=== PATIENT | female | born 1985 | race Caucasian/White ===

== ENCOUNTER 2017-01-21 20:07 | Emergency (ER) | payer BC ==
[~2017-01-21] VITALS: Ht 165.1 cm; Wt 138.3 kg
[~2017-01-21 20:07] MED LIST: CITA20TA9 PO; DESO1TAB33 PO; NAPR-683 PO
[2017-01-21 20:53] LABS: BILIRUBIN,URINE NEGATIVE (NEG); GLUCOSE,URINE NEGATIVE (NEG); NITRITE,URINE NEGATIVE (NEG); PH,URINE 6.5; PROTEIN,URINE 100 mg/dL (NEG-TRACE); UROBILINOGEN,URINE 0.2 mg/dL (0.2 mg/dL)
[2017-01-21 20:55] LABS: BACTERIA,URINE 0 /HPF (0-FEW); RBC,URINE TNTC /HPF (0-2); SQUAMOUS EPITHELIAL CELL,UR OCC /LPF
[2017-01-21] MEDS ORDERED: IV NORMAL SALINE 1000ML BAG 1,000 ML IV ONE (21:45)
[2017-01-21 21:51] LABS: BASO % 0 % (0-3); EOS % 1 % (0-3); HEMATOCRIT 38.8 % (36.0-47.0); HEMOGLOBIN 12.8 g/dL (12.0-15.5); LYMPH # 3.2 x10^3/uL (1.0-4.8); LYMPH % 34 % (24-48); MEAN CORPUSCULAR HEMOGLOBIN 26 pg (25-35); MEAN CORPUSCULAR HGB CONC 33 g/dL (31-37); MEAN CORPUSCULAR VOLUME 80 fL (79-100); MONO % 8 % (0-9); NEUT % 57 % (31-73); PLATELET COUNT 261 x10^3/uL (140-400); RED BLOOD COUNT 4.86 x10^6/uL (3.50-5.40); RED CELL DISTRIBUTION WIDTH 14.9 % (11.5-14.5); WHITE BLOOD COUNT 9.5 x10^3/uL (4.0-11.0)
[2017-01-21 22:10] LABS: CALCIUM 8.7 mg/dL (8.5-10.1); CREATININE 0.9 mg/dL (0.6-1.0); GFR 72.6; POTASSIUM 3.9 mmol/L (3.5-5.1)
[2017-01-21 22:15] LABS: ALBUMIN 3.3 g/dL (3.4-5.0); ALBUMIN/GLOBULIN RATIO 0.7 (1.0-1.7); TOTAL BILIRUBIN 0.1 mg/dL (0.2-1.0); TOTAL PROTEIN 7.9 g/dL (6.4-8.2)
--- NOTE | 2017-01-21 23:32 | RAD ---
Transabdominal and transvaginal sonography of the pelvis HISTORY: Heavy vaginal bleeding since November 28, 2016. COMPARISON: October 26, 2015. Transabdominal sonography: The uterus is anteverted in position. The longitudinal and AP and transverse dimensions are 9.9 cm and 4.6 cm and 5.3 cm respectively. The endometrial canal measures 5 mm in thickness but is poorly visualized. Therefore, transvaginal sonography will be performed. No free fluid is evident. The left ovary is not visualized by transabdominal exam. The right ovary appears normal and measures 2.4 cm and 1.6 cm and 1.7 cm in size. No adnexal mass is seen. Transvaginal sonography: The endometrial canal measures 7 mm in thickness and appears normal. This is less thick than the previous study when it measured 12 mm. No uterine mass or fibroid is seen. No free fluid is seen within the cul-de-sac. The left ovary is visualized and is normal measuring 2.4 cm and 3.0 cm and 1.8 cm in size. Color Doppler flow is seen within the left ovary. The right ovary is normal and measures 1.9 cm and 2.7 cm and 1.9 cm in size. Color Doppler flow is seen within the right ovary. No adnexal mass is seen. IMPRESSION: Normal study. Electronically signed by: Israel Spencer MD (01/21/2017 11:28 PM) [facility]
[2017-01-22] MEDS ORDERED: NORG1TAB13 PO (00:19)
[2017-01-22 00:45] VITALS: BP 112/58
--- NOTE | 2017-01-22 01:49 | ED.ADGEN ---
Past Medical History Past Medical History: Depression, Pneumonia Past Surgical History: Alcohol Use: None Drug Use: None Adult General Chief Complaint Chief Complaint: VAGINAL BLEEDING HPI HPI Patient is a 31 year old woman, history of uterine polyps, with dysfunctional uterine bleeding, for which she has been on control pills for a year, who presents emergency Department with complaint of dysfunctional uterine bleeding. Patient states that she had been doing well on her control regimen, and then about 70 days ago began experiencing light of persistent bleeding. She states that she does not avoid follow-up with her FLOWER CUTTER, Dr. Mays on Wednesday. She states that she previously was using a few pads a day, but today began experiencing excessive bleeding, passage of dark red blood and clots, and is used over a dozen pads today. She states she does feel slightly lightheaded, denies any syncope, any chest pain or shortness of breath, any injuries or insertions of the vagina, any nausea or vomiting,any weakness, numbness or tingling. She states that she is sexually active but denies any concerns for STI exposures. She states she experience mild discomfort with passage of clots, but no significant abdominal pain or cramping, no back pain, urinary complaints. Patient states she had a similar sort occur when she first developed issues with vaginal bleeding a year ago, at that time she was admitted to the hospital and placed on IV hormone therapy before she was initiated on oral therapy. Review of Systems Review of Systems Constitutional: Denies fever or chills. [] Eyes: Denies change in visual acuity. [] HENT: Denies nasal congestion or sore throat. [] Respiratory: Denies cough or shortness of breath. [] Cardiovascular: Denies chest pain or edema. [] GI: Denies abdominal pain, nausea, vomiting, bloody stools or diarrhea. [] : Denies dysuria. [] Persistent vaginal bleeding, heavy times one day. Musculoskeletal: Denies back pain or joint pain. [] Integument: Denies rash. [] Neurologic: Denies headache, focal weakness or sensory changes. [] Endocrine: Denies polyuria or polydipsia. [] Lymphatic: Denies swollen glands. [] Psychiatric: Denies depression or anxiety. [] Current Medications Current Medications Current Medications Medications (Trade) Dose Ordered Sig/Apmaro Start Time Stop Time Status Last Admin Dose Admin Sodium Chloride 1,000 ml @ 1,000 mls/hr 1X ONCE 01/21/17 21:45 01/21/17 22:44 DC 01/21/17 21:47 1,000 MLS/HR Allergies Allergies Allergies Coded Allergies Type Severity Reaction Last Updated Verified coconut oil Allergy Severe Anaphylaxis 08/03/14 No medroxyprogesterone Allergy Severe ANAPHYLAXIS, SWELLING 10/25/15 Yes Physical Exam Physical Exam Constitutional: Well developed, well nourished, no acute distress, non-toxic appearance. [] HENT: Normocephalic, atraumatic, bilateral external ears normal, oropharynx moist, no oral exudates, nose normal. [] Eyes: PERRLA, EOMI, conjunctiva normal, no discharge. [] Neck: Normal range of motion, no tenderness, supple, no stridor. [] Cardiovascular:Heart rate regular rhythm, no murmur , S1, S2, rubs or gallops.[] Lungs & Thorax: Bilateral breath sounds clear to auscultation, no wheezing, rhonchi, rales. No chest or crepitus or tenderness. [] Abdomen: Bowel sounds normal, soft, obese, no tenderness, no masses, no pulsatile masses. [] Skin: Warm, dry, no erythema, no rash. [] Back: No tenderness, no CVA tenderness. [] Extremities: No tenderness, no cyanosis, no clubbing, ROM intact, no edema. [] Neurologic: Alert and oriented X 3, normal motor function, normal sensory function, no focal deficits noted. [] Psychologic: Affect normal, judgement normal, mood normal. [] Pelvic examination: External examination is normal, no lesions or rales identified, patient noted to have moderate amount of dark red blood, and clots with initial examination of the vulva, bimanual examination reveals mild tenderness at the cervix, no adnexal masses or normalities palpated. Speculum examination performed, reveals a normal-appearing cervix, which is oozing dark red blood, no clots or tissue noted in the os. Os is fingertip external, and external. No friability or other abnormalities identified. Speculum examination performed without issue, specimen taken without issue. Current Patient Data Vital Signs Vital Signs Date Time Temp Pulse Resp B/P (MAP) Pulse Ox O2 Delivery O2 Flow Rate FiO2 01/22/17 00:45 21 112/58 (76) 95 Room Air 01/22/17 00:30 90 01/21/17 20:39 99.2 99.2 Lab Values Laboratory Tests Test 01/21/17 20:27 01/21/17 20:39 01/21/17 21:05 Urine Color Yellow Urine Clarity Clear Urine pH 6.5 Urine Specific [place] 1.025 Urine Protein 100 mg/dL (NEG-TRACE) Urine Glucose (UA) Negative mg/dL (NEG) Urine Ketones (Stick) Negative mg/dL (NEG) Urine Blood Large (NEG) Urine Nitrite Negative (NEG) Urine Bilirubin Negative (NEG) Urine Urobilinogen Dipstick 0.2 mg/dL (0.2 mg/dL) Urine Leukocyte Esterase Trace (NEG) Urine RBC Tntc /HPF (0-2) Urine WBC 1-4 /HPF (0-4) Urine Squamous Epithelial Cells Occ /LPF Urine Bacteria 0 /HPF (0-FEW) POC Urine HCG, Qualitative Hcg negative (Negative) White Blood Count 9.5 x10^3/uL (4.0-11.0) Red Blood Count 4.86 x10^6/uL (3.50-5.40) Hemoglobin 12.8 g/dL (12.0-15.5) Hematocrit 38.8 % (36.0-47.0) Mean Corpuscular Volume 80 fL (79-100) Mean Corpuscular Hemoglobin 26 pg (25-35) Mean Corpuscular Hemoglobin Concent 33 g/dL (31-37) Red Cell Distribution Width 14.9 % (11.5-14.5) H Platelet Count 261 x10^3/uL (140-400) Neutrophils (%) (Auto) 57 % (31-73) Lymphocytes (%) (Auto) 34 % (24-48) Monocytes (%) (Auto) 8 % (0-9) Eosinophils (%) (Auto) 1 % (0-3) Basophils (%) (Auto) 0 % (0-3) Neutrophils # (Auto) 5.4 x10^3uL (1.8-7.7) Lymphocytes # (Auto) 3.2 x10^3/uL (1.0-4.8) Monocytes # (Auto) 0.7 x10^3/uL (0.0-1.1) Eosinophils # (Auto) 0.1 x10^3/uL (0.0-0.7) Basophils # (Auto) 0.0 x10^3/uL (0.0-0.2) Sodium Level 140 mmol/L (136-145) Potassium Level 3.9 mmol/L (3.5-5.1) Chloride Level 105 mmol/L (98-107) Carbon Dioxide Level 26 mmol/L (21-32) Anion Gap 9 (6-14) Blood Urea Nitrogen 12 mg/dL (7-20) Creatinine 0.9 mg/dL (0.6-1.0) Estimated GFR (Cockcroft-Gault) 72.6 BUN/Creatinine Ratio 13 (6-20) Glucose Level 85 mg/dL (70-99) Calcium Level 8.7 mg/dL (8.5-10.1) Total Bilirubin 0.1 mg/dL (0.2-1.0) L Aspartate Amino Transferase (AST) 18 U/L (15-37) Alanine Aminotransferase (ALT) 19 U/L (14-59) Alkaline Phosphatase 62 U/L (46-116) Total Protein 7.9 g/dL (6.4-8.2) Albumin 3.3 g/dL (3.4-5.0) L Albumin/Globulin Ratio 0.7 (1.0-1.7) L Laboratory Tests 01/21/17 21:05 Laboratory Tests 01/21/17 21:05 Microbiology 01/21/17 Wet Prep - Final, Complete EKG EKG ECG: Rhythm strip: Sinus tachycardia, heart rate 103 beats are minute, no ectopy. As interpreted by me. Radiology/Procedures Radiology/Procedures [][facility] [address] [place] [address] IMAGING REPORT Signed PATIENT: ENRRIQUE MEIER ACCOUNT: [id number] : 1985 LOCATION: ER AGE: 31 SEX: F EXAM STATUS: REG ER ORD. PHYSICIAN: EVERTON LOVING DO REASON: Vaginal bleeding PROCEDURE: PELVIS W/TV Transabdominal and transvaginal sonography of the pelvis HISTORY: Heavy vaginal bleeding since November 28, 2016. COMPARISON: October 26, 2015. Transabdominal sonography: The uterus is anteverted in position. The longitudinal and AP and transverse dimensions are 9.9 cm and 4.6 cm and 5.3 cm respectively. The endometrial canal measures 5 mm in thickness but is poorly visualized. Therefore, transvaginal sonography will be performed. No free fluid is evident. The left ovary is not visualized by transabdominal exam. The right ovary appears normal and measures 2.4 cm and 1.6 cm and 1.7 cm in size. No adnexal mass is seen. Transvaginal sonography: The endometrial canal measures 7 mm in thickness and appears normal. This is less thick than the previous study when it measured 12 mm. No uterine mass or fibroid is seen. No free fluid is seen within the cul-de-sac. The left ovary is visualized and is normal measuring 2.4 cm and 3.0 cm and 1.8 cm in size. Color Doppler flow is seen within the left ovary. The right ovary is normal and measures 1.9 cm and 2.7 cm and 1.9 cm in size. Color Doppler flow is seen within the right ovary. No adnexal mass is seen. IMPRESSION: Normal study. Electronically signed by: Tania Spencer MD (01/21/2017 11:28 PM) [facility] DICTATED and SIGNED BY: TANIA SPENCER MD DATE: 01/21/17 2322 CC: EVERTON LOVING DO; BEE RICHMOND MD ~ Course & Med Decision Making Course & Med Decision Making Pertinent Labs and Imaging studies reviewed. (See chart for details) []Patient states previous ultrasound revealed polyps, and she was told that she might require surgical intervention. A repeat ultrasound was obtained after examination discussion, stated patient has mild persistent dark oozing, but no copious bleeding at this time. Patient was observed, noted be mildly tachycardic at times, heart rate up to about 115 bpm, with blood pressures remaining stable, initial blood pressures were limited as patient had incorrectly sized cuffs in place, repeat blood pressures are 1 teens to 120s over 60s and 70s, heart rates in the 80s at rest, up to low 100s during discussion, and with activity. Patient with he will open of 12.8, was observed in the ED for several hours without recurrence of bleeding, ultrasound does not reveal any evidence of acutely concerning findings. I did discuss these findings with Dr. Mays, the patient's FLOWER C[employer]TER, he recommends the patient take a double dose of her Estarylla the next several days, and follow-up on Wednesday as scheduled, he states alternatively if the patient is a comfortable this plan , that she could be admitted for observation. I did discuss this with the patient, as stated she is had no further bleeding after more than 3 hours of observation the ED, we did discuss her findings, including her stable hemoglobin. Patient states that she would prefer to be discharged home. She was amply in the emergency department, with negative orthostasis, heart rate remained between the 80s to the low 100s, without any difficulty with ambulation. I did reiterate patient concerning symptoms that prompt return, patient voices understanding and agreement. She does have a single pill left at home, I instructed the patient to take the first double dose today, and she was given a prescription for 2 tabs to be taken once daily as directed by her [employer]OWER [employer]TER , is to follow-up on Wednesday as scheduled, and to return to ED if any new or concerning symptoms develop. Patient voiced understanding and agreement with plan as stated, was given a work note, was discharged home in stable condition with plan, prescription and precautions as above. Dragon Disclaimer Dragon Disclaimer This electronic medical record was generated, in whole or in part, using a voice recognition dictation system. Departure Impression: Primary Impression: Dysfunctional uterine bleeding Disposition: HOME, SELF-CARE Condition: IMPROVED Scripts Norgestimate-Ethinyl Estradiol (ESTARYLLA) 1 Each Tablet 2 TAB PO DAILY, #30 TAB Prov: EVERTON LOVING DO 01/22/17 EVERTON LOVING DO Jan 22, 2017 01:49
[2017-02-24] MEDS ORDERED: MEDR10TA PO (12:58)
[2017-02-25] MEDS ORDERED: IBUP200T44 PO (11:22)
== END 2017-01-22 01:05 | disposition home or self-care (01) ==
LOC: ER 20:07
DX: N93.8 Other specified abnormal uterine and vaginal bleeding (principal); F32.9 Major depressive disorder, single episode, unspecified; N84.0 Polyp of corpus uteri; Z79.3 Long term (current) use of hormonal contraceptives; Z87.01 Personal history of pneumonia (recurrent); Z88.8 Allergy status to other drugs, medicaments and biological substances; Z91.018 Allergy to other foods
CPT/HCPCS: 76830; 76856; 80053; 81001; 81025; 85025; 86850; 86900; 86901; 96360; 99285; J7030; Q0111; 36415; 87491; 87591

== ENCOUNTER → 2018-05-31 | Outpatient (CLI) | payer BC ==
[2017-02-25 12:05] VITALS: BP 126/68
[~2018-05-31] MED LIST changes: -DESO1TAB33 PO; +DESO1TAB73 PO; +IBUP200T44 PO; +MEDR10TA PO; +NORG1TAB13 PO
--- NOTE | 2018-05-31 17:08 | RAD ---
Obstetrical ultrasound, 05/31/2018: HISTORY: Uterine size discrepancy, high risk There is a single intrauterine fetus in a breech orientation. The biparietal diameter is 4.0 cm compatible with a gestational age of 18 weeks and 2 days. The femur length measurement suggests a gestational age of 17 weeks. The average gestational age based on all of the measurements is 17 weeks and 6 days yielding a sonographic EDC of 11/02/2018. Normal activity and heart motion were seen. A four-chamber heart is evident with a heart rate of 153 bpm. Fluid is identified in the bladder and stomach. A three-vessel umbilical cord is identified with a normal cord insertion site. The visualized portions of the spine and kidneys are unremarkable. The amniotic fluid volume appears to be within normal limits. The placenta is located anteriorly. There is no evidence of placenta previa. The cervical length was estimated at 5 cm. IMPRESSION: Single viable intrauterine fetus of 17-18 weeks gestational age as described above. Electronically signed by: Von Teran MD (05/31/2018 5:06 PM) [facility]
== END | disposition home or self-care (01) ==
LOC: US 15:58
PROVIDERS: ATTEND Obstetrics & Gynecology
DX: O26.842 Uterine size-date discrepancy, second trimester (principal); O32.1XX0 Maternal care for breech presentation, not applicable or unspecified; Z3A.18 18 weeks gestation of pregnancy
CPT/HCPCS: 76801; 76805

== ENCOUNTER → 2018-07-29 | Outpatient (CLI) | payer BC ==
[2017-02-25 12:05] VITALS: BP 126/68
[2018-07-29 11:37] LABS: BASO % 0 % (0-3); EOS # 0.1 x10^3/uL (0.0-0.7); EOS % 1 % (0-3); HEMATOCRIT 40.8 % (36.0-47.0); HEMOGLOBIN 13.4 g/dL (12.0-15.5); LYMPH # 1.8 x10^3/uL (1.0-4.8); LYMPH % 19 % (24-48); MEAN CORPUSCULAR HEMOGLOBIN 27 pg (25-35); MEAN CORPUSCULAR HGB CONC 33 g/dL (31-37); MEAN CORPUSCULAR VOLUME 84 fL (79-100); MONO # 0.6 x10^3/uL (0.0-1.1); MONO % 6 % (0-9); NEUT # 7.3 x10^3uL (1.8-7.7); NEUT % 75 % (31-73); PLATELET COUNT 210 x10^3/uL (140-400); RED BLOOD COUNT 4.88 x10^6/uL (3.50-5.40); RED CELL DISTRIBUTION WIDTH 16.1 % (11.5-14.5); WHITE BLOOD COUNT 9.8 x10^3/uL (4.0-11.0)
== END | disposition home or self-care (01) ==
LOC: LAB 10:22
PROVIDERS: ATTEND Obstetrics & Gynecology
DX: O09.92 Supervision of high risk pregnancy, unspecified, second trimester (principal); Z3A.26 26 weeks gestation of pregnancy
CPT/HCPCS: 36415; 82950; 85025

== ENCOUNTER 2018-08-17 10:22 | Observation (INO) | payer BC ==
[2017-02-25 12:05] VITALS: BP 126/68
[2018-08-17 11:40] LABS: BILIRUBIN,URINE NEGATIVE (NEG); CLARITY,URINE CLEAR; COLOR,URINE YELLOW; NITRITE,URINE NEGATIVE (NEG); PROTEIN,URINE >=300 mg/dL (NEG-TRACE); UROBILINOGEN,URINE 0.2 mg/dL (0.2 mg/dL)
[2018-08-17 11:49] LABS: BASO % 0 % (0-3); EOS # 0.1 x10^3/uL (0.0-0.7); EOS % 1 % (0-3); HEMOGLOBIN 13.4 g/dL (12.0-15.5); LYMPH # 1.5 x10^3/uL (1.0-4.8); LYMPH % 15 % (24-48); MEAN CORPUSCULAR HEMOGLOBIN 28 pg (25-35); MEAN CORPUSCULAR HGB CONC 33 g/dL (31-37); MEAN CORPUSCULAR VOLUME 83 fL (79-100); MONO # 0.6 x10^3/uL (0.0-1.1); MONO % 6 % (0-9); NEUT # 7.9 x10^3uL (1.8-7.7); NEUT % 79 % (31-73); PLATELET COUNT 100 x10^3/uL (140-400); RED CELL DISTRIBUTION WIDTH 16.3 % (11.5-14.5)
[2018-08-17 11:51] LABS: BACTERIA,URINE 0 /HPF (0-FEW); RBC,URINE 0 /HPF (0-2); SQUAMOUS EPITHELIAL CELL,UR MOD /LPF; WBC,URINE 0 /HPF (0-4)
[2018-08-17 11:59] LABS: CREATININE,RANDOM URINE 103.4 mg/dL (Not Establ.)
[2018-08-17 12:04] LABS: CALCIUM 9.1 mg/dL (8.5-10.1); CREATININE 0.6 mg/dL (0.6-1.0); GFR 115.1; POTASSIUM 4.1 mmol/L (3.5-5.1)
[2018-08-17 12:06] LABS: ALBUMIN 2.5 g/dL (3.4-5.0); ALBUMIN/GLOBULIN RATIO 0.6 (1.0-1.7); TOTAL BILIRUBIN 0.3 mg/dL (0.2-1.0); TOTAL PROTEIN 6.7 g/dL (6.4-8.2); URIC ACID 4.3 mg/dL (2.6-6.0)
[2018-08-17] MEDS ORDERED: IV RINGERS,LACTATED 1000ML 1,000 ML IV SCH (12:30)
--- NOTE | 2018-08-17 12:38 | RAD ---
Ultrasound biophysical profile, 08/17/2018: HISTORY: Decreased movement The limited exam of the gravid uterus demonstrates a single fetus in a breech orientation. The heart rate is 150 bpm. The biparietal diameter is 6.7 cm compatible with a gestational age of 27 weeks. Femur length measurement suggests a gestational age of 28 weeks and 6 days. The average gestational age based on all of the measurements is 27 weeks and 5 days yielding a sonographic EDC of 11/11/2018. This is somewhat delayed relative to the EDC of 11/02/2018 established on the previous ultrasound exam of 05/31/2018. The weight was estimated at 2 pounds and 8 ounces +/- 6 ounces. A full survey was not performed at this time. The amniotic fluid index is low at 3.8. The placenta is centered in the fundal region. The following biophysical profile scores were obtained: breathing movements-0 motion-2 tone-2 Amniotic fluid volume-0 Total score 4 out of 8 IMPRESSION: 1. Abnormal biophysical profile score with the ultrasound component yielding a score of 4 out of 8 as described above. 2. Oligohydramnios. 3. The overall growth since 05/31/2018 is slightly less than expected. Electronically signed by: Von Teran MD (08/17/2018 12:35 PM) [facility]
[2018-08-17] MEDS ORDERED: BETAMET ACET&NA PHOS 30 MG/5 ML VIAL. IM ONE (13:00)
[2018-08-17] MEDS ORDERED: MAGNESIUM SULFATE 4GM 100 ML IV ONE (13:00)
[2018-08-17] MEDS ORDERED: MAGNESIUM SULFATE 2GM 50 ML IV PRN (13:00)
[2018-08-17] MEDS ORDERED: MAGNESIUM SULFATE 20GM 500 ML IV SCH (13:30)
== END 2018-08-17 15:05 | disposition short-term general hospital (02) ==
LOC: 3 SO LND 10:22
PROVIDERS: ADMIT Obstetrics & Gynecology; ATTEND Obstetrics & Gynecology
DX: O26.892 Other specified pregnancy related conditions, second trimester (principal); R10.13 Epigastric pain; R10.31 Right lower quadrant pain; O99.613 Diseases of the digestive system complicating pregnancy, third trimester; K21.9 Gastro-esophageal reflux disease without esophagitis; Z3A.27 27 weeks gestation of pregnancy
CPT/HCPCS: 36415; 76819; 80053; 81001; 82570; 83615; 84156; 84550; 85025; 96365; 96366; 96372; G0378; G0379; J0702; J3475

== ENCOUNTER → 2018-08-17 | Outpatient (CLI) | payer BC ==
[2017-02-25 12:05] VITALS: BP 126/68
== END | disposition home or self-care (01) ==
LOC: LAB 08:48
PROVIDERS: ATTEND Obstetrics & Gynecology
DX: O09.92 Supervision of high risk pregnancy, unspecified, second trimester (principal); Z3A.27 27 weeks gestation of pregnancy
CPT/HCPCS: 36415; 82947

== ENCOUNTER → 2020-05-23 | Outpatient (CLI) | payer BC, OTHER ==
[2017-02-25 12:05] VITALS: BP 126/68
[~2020-05-23] MED LIST changes: +DESO1TAB PO; -DESO1TAB73 PO
--- NOTE | 2020-05-23 16:18 | RAD ---
INDICATION: Reason: menorrhagia / Spl. Instructions: / History: COMPARISON: January 2017. TECHNIQUE: Grayscale and color ultrasound images uterus and adnexa. Transabdominal and transvaginal images obtained. Transvaginal images were needed to better visualize structures that were limited on transabdominal imaging. FINDINGS: Uterus: 95 x 51 x 46 mm. Endometrial stripe is 8 mm. Solid-appearing lesion within the uterus measuring 23 mm anteriorly. Subserosal and partially exophyt ic. Suspected nabothian cyst. Right Ovary: 33 x 30 x 25 mm. Left Ovary: 37 x 27 x 21 mm. Vascular flow identified to bilateral ovaries. IMPRESSION: * Solid mass within the uterus likely from fibroid. * Nabothian cyst. Electronically signed by: Sotero Baker MD (05/23/2020 4:15 PM) [id number]
== END ==
LOC: US 15:08
PROVIDERS: ATTEND Obstetrics & Gynecology
DX: N92.0 Excessive and frequent menstruation with regular cycle (principal); N88.8 Other specified noninflammatory disorders of cervix uteri
CPT/HCPCS: 76830; 76856